=== PATIENT | female | born 1955 | race Caucasian/White ===

== ENCOUNTER → 2024-12-02 | Day surgery (SDC) | payer MEDICARE ==
[2024-11-30 14:39] LABS: BASOPHILS % 0.8 % (0.0-1.0); EOSINOPHILS % 1.0 % (0.0-6.0); LYMPHOCYTES % 26.9 % (18.0-39.1); MONOCYTES % 14.4 % (4.4-11.3); NEUTROPHILS % 56.7 % (38.7-80.0); RED CELL DISTRIBUTION WIDTH 13.2 % (11.7-14.4)
[~2024-12-02] MED LIST: BUSPIRONE HCL5 MG PO; CALTRATE-600 W1 EACH PO; DILTIAZEM HCL30 MG PO; DULOXETINE HCL60 MG PO; ELIQUIS5 MG PO; FLECAINIDE ACE100 MG PO; LEVOTHYROXINE150 MCG PO; LIDOCAINE HCL 2% LOCAL INJ 5 ML SDV VIAL INJ ONE; OMEPRAZOLE40 MG PO; OZEMPIC0.25 MG/02 SC; PROPOFOL IV EMULSION 50 ML IV ONE; VITAMIN B12500 MCG PO; VITAMIN D3125 MCG PO
[2024-12-02] MEDS: LACTATED RINGER'S 1,000 ML ONE (10:47)
[2024-12-02 12:34] VITALS: TEMP 98.2
[2024-12-02 12:45] VITALS: BP 160/89; PULSE 98; RESP 16; O2SAT 98
== END | disposition home or self-care (01) ==
LOC: OR 09:12
PROVIDERS: ATTEND Internal Medicine Gastroenterology
DX: K21.00 Gastro-esophageal reflux disease with esophagitis, without bleeding (principal); D12.5 Benign neoplasm of sigmoid colon; K31.7 Polyp of stomach and duodenum; K29.00 Acute gastritis without bleeding; K29.50 Unspecified chronic gastritis without bleeding; K31.A15 Gastric intestinal metaplasia without dysplasia, involving multiple sites; K44.9 Diaphragmatic hernia without obstruction or gangrene; K57.30 Diverticulosis of large intestine without perforation or abscess without bleeding; K59.09 Other constipation; K58.9 Irritable bowel syndrome, unspecified; K64.8 Other hemorrhoids; I50.9 Heart failure, unspecified; I49.9 Cardiac arrhythmia, unspecified; E03.9 Hypothyroidism, unspecified; F41.9 Anxiety disorder, unspecified; F32.A Depression, unspecified; Z01.810 Encounter for preprocedural cardiovascular examination; Z01.812 Encounter for preprocedural laboratory examination; Z79.02 Long term (current) use of antithrombotics/antiplatelets; Z79.85 Long-term (current) use of injectable non-insulin antidiabetic drugs; Z79.899 Other long term (current) drug therapy; Z68.23 Body mass index [BMI] 23.0-23.9, adult; Z86.2 Personal history of diseases of the blood and blood-forming organs and certain disorders involving the immune mechanism; Z86.16 Personal history of COVID-19; Z87.891 Personal history of nicotine dependence; Z95.810 Presence of automatic (implantable) cardiac defibrillator
CPT/HCPCS: 36415; 43239; 43251; 43450; 45385; 85025; 88305; 88342; 93005; J2003; J2704; J7121